=== PATIENT | female | born 1930 | race African-American/Black ===

== ENCOUNTER 2016-11-28 19:22 | Inpatient (IN) | payer MEDICARE, OTHER ==
[2016-11-28] MEDS ORDERED: PANTOPRAZOLE 40 MG/10 ML VIAL IVP STA (21:44)
[2016-11-28] MEDS ORDERED: SODIUM CHLORIDE 0.9% 1,000 ML IV STA ×2 (21:44)
[2016-11-28] MEDS ORDERED: ONDANSETRON 4 MG/2 ML VIAL IVP STA (21:44)
[2016-11-28 22:13] LABS: Basophils % (A) 0 %; CH 28.6; CHCM 31.7; Eosinophils # (A) 0.1 k/uL (0-0.7); Eosinophils % (A) 1 %; HCT 38.3 % (34.0-46.0); HDW 2.48; Luc # (Auto) 0.06; Luc % (Auto) 1; Lymphocytes # (A) 1.4 k/uL (1.0-4.8); Lymphocytes % (A) 14 %; MCH 28.3 pg (25.0-35.0); MCHC 31.2 g/dL (31.0-37.0); MCV 90.7 fL (80.0-100.0); Mean Platelet Volume 8.1; Monocytes # (A) 0.2 k/uL (0-1.0); Monocytes % (A) 2 %; Neutrophils # (A) 8.5 k/uL (1.3-7.7); Neutrophils % (A) 84 %; RBC 4.23 m/uL (3.80-5.40); RDW 14.1 % (11.5-15.5); WBC 10.1 k/uL (3.8-10.6); WBC (Perox) 10.44
[2016-11-28 22:22] LABS: INR 1.1 (<1.1); Partial Thromboplastin Time 23.2 sec (22.0-30.0); Prothrombin Time 11.2 sec (9.0-12.0)
[2016-11-28 22:25] LABS: Calcium 10.2 mg/dL (8.4-10.2); Magnesium 1.6 mg/dL (1.6-2.3); Phosphorous 3.8 mg/dL (2.5-4.5); Potassium 3.9 mmol/L (3.5-5.1); Total Protein 7.8 g/dL (6.3-8.2)
--- NOTE | 2016-11-28 22:29 | ED ---
General Adult HPI - General Chief complaint: Nausea/Vomiting/Diarrhea Stated complaint: Dizziness Time Seen by Provider: 11/28/16 21:13 Source: patient, family, RN notes reviewed, old records reviewed Mode of arrival: wheelchair - History of Present Illness Initial comments: This is an 86-year-old female here for evaluation. Patient presents here today for evaluation of nausea and vomiting, headache and dizziness. Patient feels like the room spinning around, occasionally with change of position. She is weak with difficulty with ambulation, no specific abdominal pain. No recent fevers of sick contacts or travel history, no recent change in medications. - Related Data Home Medications Medication Instructions Recorded Confirmed Aspirin EC [Ecotrin Low Dose] 81 mg PO DAILY 11/28/16 11/28/16 Donepezil [Aricept] 10 mg PO HS 11/28/16 11/28/16 Fluticasone Nasal [place] [Flonase 2 spray EA NOSTRIL DAILY 11/28/16 11/28/16 Nasal [place]] Isosorbide Mononitrate ER [Imdur] 60 mg PO DAILY 11/28/16 11/28/16 Lansoprazole [Prevacid] 30 mg PO DAILY 11/28/16 11/28/16 Memantine HCl [Namenda Xr] 28 mg PO DAILY 11/28/16 11/28/16 Sertraline HCl [Zoloft] 50 mg PO DAILY 11/28/16 11/28/16 Solifenacin Succinate [Vesicare] 5 mg PO DAILY 11/28/16 11/28/16 Valsartan [Diovan] 320 mg PO DAILY 11/28/16 11/28/16 Allergies Allergy/AdvReac Type Severity Reaction Status Date / Time Iodinated Contrast Media - Allergy Unknown Verified 11/28/16 21:57 Oral and Review of Systems ROS Statement: Those systems with pertinent positive or pertinent negative responses have been documented in the HPI. ROS Other: All systems not noted in ROS Statement are negative. Past Medical History Past Medical History: Hypertension Past Surgical History: No Surgical Hx Reported Past Psychological History: No Psychological Hx Reported Smoking Status: Never smoker Past Alcohol Use History: None Reported Past Drug Use History: None Reported General Exam General appearance: alert, in no apparent distress Head exam: Present: atraumatic, normocephalic, normal inspection Eye exam: Present: normal appearance, PERRL, EOMI. Absent: scleral icterus, conjunctival injection, periorbital swelling ENT exam: Present: normal exam, mucous membranes moist Neck exam: Present: normal inspection. Absent: tenderness, meningismus, lymphadenopathy Respiratory exam: Present: normal lung sounds bilaterally. Absent: respiratory distress, wheezes, rales, rhonchi, stridor Cardiovascular Exam: Present: regular rate, normal rhythm, normal heart sounds. Absent: systolic murmur, diastolic murmur, rubs, gallop, clicks GI/Abdominal exam: Present: soft, normal bowel sounds. Absent: distended, tenderness, guarding, rebound, rigid Extremities exam: Present: normal inspection, full ROM, normal capillary refill. Absent: tenderness, pedal edema, joint swelling, calf tenderness Back exam: Present: normal inspection Neurological exam: Present: alert, oriented X3, CN II-XII intact Psychiatric exam: Present: normal affect, normal mood Skin exam: Present: warm, dry, intact, normal color. Absent: rash Course Vital Signs 11/28/16 19:46 Temperature 96.9 F L Pulse Rate 77 Respiratory 18 Rate Blood Pressure 115/57 O2 Sat by Pulse 98 Oximetry - Reevaluation(s) Reevaluation #1: 11/29/16 00:04 Patient remains feeling weak and dizzy EKG Findings - EKG Comments: EKG Findings:: EKG shows A. fib rate of 81, QRS 66, QTc 506 Medical Decision Making - Medical Decision Making 78 female here for evaluation of weakness dizziness, severe dehydration positive urinary tract infection patient will be admitted for resuscitation, IV antibiotics and further evaluation - Lab Data Result diagrams: 11/28/16 21:30 11/28/16 21:30 Lab Results 11/28/16 11/28/16 11/28/16 Range/Units 21:30 21:30 21:30 WBC 10.1 (3.8-10.6) k/uL RBC 4.23 (3.80-5.40) m/uL Hgb 12.0 (11.4-16.0) gm/dL Hct 38.3 (34.0-46.0) % MCV 90.7 (80.0-100.0) fL MCH 28.3 (25.0-35.0) pg MCHC 31.2 (31.0-37.0) g/dL RDW 14.1 (11.5-15.5) % Plt Count 198 (150-450) k/uL Neutrophils % 84 % Lymphocytes % 14 % Monocytes % 2 % Eosinophils % 1 % Basophils % 0 % Neutrophils # 8.5 H (1.3-7.7) k/uL Lymphocytes # 1.4 (1.0-4.8) k/uL Monocytes # 0.2 (0-1.0) k/uL Eosinophils # 0.1 (0-0.7) k/uL Basophils # 0.0 (0-0.2) k/uL PT (9.0-12.0) sec INR (<1.1) APTT (22.0-30.0) sec Sodium 141 (137-145) mmol/L Potassium 3.9 (3.5-5.1) mmol/L Chloride 106 (98-107) mmol/L Carbon Dioxide 23 (22-30) mmol/L Anion Gap 12 mmol/L BUN 17 (7-17) mg/dL Creatinine 1.15 H (0.52-1.04) mg/dL Est GFR (MDRD) Af Amer 54 (>60 ml/min/1.73 sqM) Est GFR (MDRD) Non-Af 45 (>60 ml/min/1.73 sqM) Glucose 149 H (74-99) mg/dL Plasma Lactic Acid Milo (0.7-2.0) mmol/L Calcium 10.2 (8.4-10.2) mg/dL Phosphorus 3.8 (2.5-4.5) mg/dL Magnesium 1.6 (1.6-2.3) mg/dL Total Bilirubin 1.0 (0.2-1.3) mg/dL AST 23 (14-36) U/L ALT 21 (9-52) U/L Alkaline Phosphatase 79 (38-126) U/L Total Creatine Kinase 90 (30-135) U/L CK-MB (CK-2) 0.5 (0.0-2.4) ng/mL CK-MB (CK-2) Rel Index 0.6 Troponin I <0.012 (0.000-0.034) ng/mL Total Protein 7.8 (6.3-8.2) g/dL Albumin 4.0 (3.5-5.0) g/dL Urine Color Urine Appearance (Clear) Urine pH (5.0-8.0) Ur Specific [place] (1.001-1.035) Urine Protein (Negative) Urine Glucose (UA) (Negative) Urine Ketones (Negative) Urine Blood (Negative) Urine Nitrate (Negative) Urine Bilirubin (Negative) Urine Urobilinogen (<2.0) mg/dL Ur Leukocyte Esterase (Negative) Urine RBC (0-5) /hpf Urine WBC (0-5) /hpf Urine WBC Clumps (None) /hpf Ur Squamous Epith Cells (0-4) /hpf Amorphous Sediment (None) /hpf Urine Bacteria (None) /hpf Urine Mucus (None) /hpf 11/28/16 11/28/16 11/28/16 Range/Units 21:30 21:30 23:15 WBC (3.8-10.6) k/uL RBC (3.80-5.40) m/uL Hgb (11.4-16.0) gm/dL Hct (34.0-46.0) % MCV (80.0-100.0) fL MCH (25.0-35.0) pg MCHC (31.0-37.0) g/dL RDW (11.5-15.5) % Plt Count (150-450) k/uL Neutrophils % % Lymphocytes % % Monocytes % % Eosinophils % % Basophils % % Neutrophils # (1.3-7.7) k/uL Lymphocytes # (1.0-4.8) k/uL Monocytes # (0-1.0) k/uL Eosinophils # (0-0.7) k/uL Basophils # (0-0.2) k/uL PT 11.2 (9.0-12.0) sec INR 1.1 (<1.1) APTT 23.2 (22.0-30.0) sec Sodium (137-145) mmol/L Potassium (3.5-5.1) mmol/L Chloride (98-107) mmol/L Carbon Dioxide (22-30) mmol/L Anion Gap mmol/L BUN (7-17) mg/dL Creatinine (0.52-1.04) mg/dL Est GFR (MDRD) Af Amer (>60 ml/min/1.73 sqM) Est GFR (MDRD) Non-Af (>60 ml/min/1.73 sqM) Glucose (74-99) mg/dL Plasma Lactic Acid Mil[place] 3.0 H* (0.7-2.0) mmol/L Calcium (8.4-10.2) mg/dL Phosphorus (2.5-4.5) mg/dL Magnesium (1.6-2.3) mg/dL Total Bilirubin (0.2-1.3) mg/dL AST (14-36) U/L ALT (9-52) U/L Alkaline Phosphatase (38-126) U/L Total Creatine Kinase (30-135) U/L CK-MB (CK-2) (0.0-2.4) ng/mL CK-MB (CK-2) Rel Index Troponin I (0.000-0.034) ng/mL Total Protein (6.3-8.2) g/dL Albumin (3.5-5.0) g/dL Urine Color Yellow Urine Appearance Turbid H (Clear) Urine pH 5.0 (5.0-8.0) Ur Specific [place] 1.016 (1.001-1.035) Urine Protein 1+ H (Negative) Urine Glucose (UA) Negative (Negative) Urine Ketones 1+ H (Negative) Urine Blood Trace H (Negative) Urine Nitrate Positive H (Negative) Urine Bilirubin Negative (Negative) Urine Urobilinogen 2.0 (<2.0) mg/dL Ur Leukocyte Esterase Large H (Negative) Urine RBC 4 (0-5) /hpf Urine WBC 154 H (0-5) /hpf Urine WBC Clumps Few H (None) /hpf Ur Squamous Epith Cells 3 (0-4) /hpf Amorphous Sediment Rare H (None) /hpf Urine Bacteria Many H (None) /hpf Urine Mucus Few H (None) /hpf - Radiology Data Radiology results: report reviewed (CT pelvis negative for acute disease), image reviewed Disposition Clinical Impression: Dehydration, UTI (urinary tract infection) Disposition: ADMITTED IP TO THIS [facility] Condition: Good Referrals: Stefano Sanabria DO [Primary Care Provider] - 1-2 days
[2016-11-28 22:33] LABS: Creatine Kinase 90 U/L (30-135)
[2016-11-28] MEDS ORDERED: SODIUM CHLORIDE 0.9% 2,000 ML IV STA (22:33)
[2016-11-28 22:48] LABS: Creatine Kinase MB 0.5 ng/mL (0.0-2.4); Troponin I <0.012 ng/mL (0.000-0.034)
--- NOTE | 2016-11-28 22:50 | CT ---
EXAMINATION TYPE: CT brain wo con DATE OF EXAM: 11/28/2016 10:43 PM COMPARISON: NONE HISTORY: weakness CT DLP: 999.8 mGycm Automated exposure control for dose reduction was used. FINDINGS: There is cerebral cortical atrophy. There is no mass effect nor midline shift. There is no sign of in tracranial hemorrhage. The calvarium is intact. IMPRESSION: Cerebral atrophy. No acute intracranial abnormality.
[2016-11-28 23:59] LABS: Amorphous Sediment,Urine Rare /hpf; Appearance,Urine Turbid (Clear); Bacteria,Urine Many /hpf; Bilirubin,Urine Negative (Negative); Glucose,Urine (UA) Negative (Negative); Ketones,Urine 1+ (Negative); Leukocyte Esterase,Urine Large (Negative); Mucus,Urine Few /hpf; Nitrite,Urine Positive (Negative); Particle Count 69100; Protein,Urine 1+ (Negative); RBC,Urine 4 /hpf (0-5); Specific Gravity,Urine 1.016 (1.001-1.035); Squamous Epithelial Cell,Urine 3 /hpf (0-4); UA Billing (MACRO vs. MICRO) MICRO; WBC,Urine 154 /hpf (0-5)
[2016-11-29 01:59] VITALS: BMI 28.3
[2016-11-29] MEDS: ENOXAPARIN 40 MG/0.4 ML SYRINGE SQ SCH (09:34)
--- NOTE | 2016-11-29 19:14 | P.HPIM ---
History of Present Illness H&P Date: 11/29/16 78-year-old female with history of dementia comes in to the hospital with complains of urinary urgency and burning for the last few days. Most of the history is obtained from the chart. She apparently has been having some urinary symptoms, denies having any fevers, chills, nausea or diarrhea. Patient however apparently has not been eating well in the recent times. Patient probably had also had slightly low blood pressures and dizziness. Patient was noted to have a lactic acid elevation initially, a UA consistent with ATN just was a prerenal etiology from the above-stated infection. Currently patient states to be feeling okay, denies having any nausea. States that she is able to tolerate liquids and food. Patient lives with her daughter,. Patient was given fluid boluses in the ER. Review of Systems All systems: negative (Noted in HPI) Past Medical History Past Medical History: Hypertension History of Any Multi-Drug Resistant Organisms: None Reported Past Surgical History: No Surgical Hx Reported Additional Past Surgical History / Comment(s): daughter thinks she has bowel surgery Past Anesthesia/Blood Transfusion Reactions: No Reported Reaction Past Psychological History: No Psychological Hx Reported Smoking Status: Never smoker Past Alcohol Use History: None Reported Past Drug Use History: None Reported - Past Family History Mother History Unknown: Yes Father History Unknown: Yes Medications and Allergies Home Medications Medication Instructions Recorded Confirmed Type Aspirin EC [Ecotrin Low Dose] 81 mg PO DAILY 11/28/16 11/28/16 History Donepezil [Aricept] 10 mg PO HS 11/28/16 11/28/16 History Fluticasone Nasal [place] [Flonase 2 spray EA NOSTRIL DAILY 11/28/16 11/28/16 History Nasal [place]] Isosorbide Mononitrate ER [Imdur] 60 mg PO DAILY 11/28/16 11/28/16 History Lansoprazole [Prevacid] 30 mg PO DAILY 11/28/16 11/28/16 History Memantine HCl [Namenda Xr] 28 mg PO DAILY 11/28/16 11/28/16 History Sertraline HCl [Zoloft] 50 mg PO DAILY 11/28/16 11/28/16 History Solifenacin Succinate [Vesicare] 5 mg PO DAILY 11/28/16 11/28/16 History Valsartan [Diovan] 320 mg PO DAILY 11/28/16 11/28/16 History Allergies Allergy/AdvReac Type Severity Reaction Status Date / Time Iodinated Contrast Media - Allergy Unknown Verified 11/28/16 21:57 Oral and Physical Exam Vitals: Vital Signs Temp Pulse Pulse Resp BP BP Pulse Ox 11/29/16 15:00 97.0 F L 77 18 143/68 93 L 11/29/16 07:00 98.1 F 70 17 118/71 94 L 11/29/16 01:45 97.0 F L 89 16 150/73 11/29/16 01:10 73 12 162/97 95 Intake and Output 11/29/16 11/29/16 11/29/16 06:59 14:59 22:59 Intake Total 300 840 360 Balance 300 840 360 Intake: IV 300 Sodium Chloride 0.9% 1, 300 000 ml @ 100 mls/hr IV . Q10H STA Rx#:[id number] Oral 840 360 Other: Voiding Method Toilet Bedpan # Voids 3 3 Weight 77.111 kg Physical exam Gen. appearance oriented to time and place in no distress Neck is supple no JVD Lungs good air entry clear to auscultation no rhonchi or wheezing Heart S1-S2 heard regular rate and rhythm no murmurs appreciated Abdomen is soft nontender no organomegaly bowel sounds are intact no suprapubic tenderness noted Neurologically cranial nerves II-12 grossly intact no focal motor or sensory deficits noted Skin no abnormalities appreciated Results CBC & Chem 7: 11/28/16 21:30 11/28/16 21:30 Thrombosis Risk Factor Assmnt - Choose All That Apply Each Risk Factor Represents 3 Points: Age 75 years or older Thrombosis Risk Factor Assessment Total Risk Factor Score: 3 Thrombosis Risk Factor Assessment Level: Moderate Risk Assessment and Plan Plan: #1 acute kidney injury likely secondary to dehydration #2 urinary tract infection #3 sepsis secondary to above #4 history of dementia #5 history of hypertension #6 GERD #7 dyslipidemia Plan Continue ongoing care. Patient be continued on antibiotics. Continue blood pressure maintain map greater than 65. With IV hydration and monitor blood pressure patient will likely be ambulated tomorrow if patient is orthostatic negative and is able to ambulate and we'll likely discharge the patient next 24-48 hours.
[2016-11-29] MEDS ORDERED: DONEPEZIL 10 MG TAB PO SCH (21:00)
[2016-11-30] MEDS ORDERED: HALOPERIDOL LACTATE 5 MG/ML 1 ML VIAL IM ONE (05:32)
[2016-11-30] MEDS ORDERED: PANTOPRAZOLE 40 MG TABLET PO SCH (07:30)
[2016-11-30 08:12] LABS: Basophils % (A) 0 %; CH 28.4; Eosinophils # (A) 0.1 k/uL (0-0.7); Eosinophils % (A) 2 %; HCT 38.5 % (34.0-46.0); HDW 2.53; HGB 11.8 gm/dL (11.4-16.0); Hypochromasia Slight; Luc # (Auto) 0.07; Luc % (Auto) 1; Lymphocytes # (A) 1.4 k/uL (1.0-4.8); Lymphocytes % (A) 23 %; MCH 28.4 pg (25.0-35.0); MCHC 30.8 g/dL (31.0-37.0); MCV 92.4 fL (80.0-100.0); Mean Platelet Volume 8.2; Monocytes # (A) 0.3 k/uL (0-1.0); Monocytes % (A) 5 %; Neutrophils # (A) 4.2 k/uL (1.3-7.7); Neutrophils % (A) 69 %; RBC 4.17 m/uL (3.80-5.40); RDW 14.1 % (11.5-15.5); WBC 6.2 k/uL (3.8-10.6); WBC (Perox) 6.56
[2016-11-30 08:13] VITALS: BP 150/73; PULSE 67; RESP 16; TEMP 97.9
[2016-11-30 08:34] LABS: ALT 30 U/L (9-52); AST 23 U/L (14-36); Alkaline Phosphatase 69 U/L (38-126); Anion Gap 13 mmol/L; Blood Urea Nitrogen 7 mg/dL (7-17); Calcium 9.5 mg/dL (8.4-10.2); Carbon Dioxide 23 mmol/L (22-30); Chloride 109 mmol/L (98-107); Glucose 95 mg/dL (74-99); Magnesium 1.3 mg/dL (1.6-2.3); Non-African American GFR(MDRD) >60 (>60 ml/min/1.73 sqM); Potassium 3.8 mmol/L (3.5-5.1); Sodium 145 mmol/L (137-145); Total Bilirubin 0.6 mg/dL (0.2-1.3); Total Protein 7.4 g/dL (6.3-8.2)
[2016-11-30] MEDS: ENOXAPARIN 40 MG/0.4 ML SYRINGE SQ SCH ×2 (08:46→09:00)
[2016-11-30] MEDS ORDERED: OXYBUTYNIN XL 5 MG TAB.ER.24 PO SCH (09:00)
[2016-11-30] MEDS ORDERED: SERTRALINE 50 MG TAB PO SCH (09:00)
[2016-11-30] MEDS ORDERED: FLUTICASONE 50MCG/SPRAY NASAL 16GM EA NOSTRIL SCH (09:00)
[2016-11-30] MEDS ORDERED: MEMANTINE 10 MG TAB PO SCH (09:00)
--- NOTE | 2016-11-30 20:39 | P.DS ---
Providers Date of admission: 11/29/16 00:03 Attending physician: Bill Carey Primary care physician: Stefano Sutherland [facility] Course: 78-year-old female with history of dementia comes in to the hospital with complains of urinary urgency and burning for the last few days. Most of the history is obtained from the chart. She apparently has been having some urinary symptoms, denies having any fevers, chills, nausea or diarrhea. Patient however apparently has not been eating well in the recent times. Patient probably had also had slightly low blood pressures and dizziness. Patient was noted to have a lactic acid elevation initially, a UA consistent with ATN just was a prerenal etiology from the above-stated infection. Currently patient states to be feeling okay, denies having any nausea. States that she is able to tolerate liquids and food. Patient lives with her daughter,. Patient was given fluid boluses in the ER. On the day of discharge Pt was awake, was answering questions appropriately Pt did have episodes of confusion, appeared to be delirium. Physical exam Gen. 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 #3 sepsis secondary to above #4 history of dementia #5 history of hypertension #6 GERD #7 dyslipidemia 8 Delirium Discussion Dc home on levaquin SPoke to the lab. Pt's family is recommended to follow up with Dr Sutherland, in order to ensure susceptibilities. Levauqin for 10 days Clinically improved Was able to ambulate. Delirium is likely secondary to unfamiliar place. Discussed with family that is stable to be discharged. Daughter was concerned about the incident this am, however, pt didnot require any medications. Discussed it is delirium, due to lack of sleep. pt clinically does not appear to be dehydrated. D/c home with home care. pai gow dealer to eval kathy am. Patient Condition at Discharge: Good Plan - Discharge Summary New Discharge Prescriptions: Levofloxacin [Levaquin] 500 mg PO DAILY #7 tab Discharge Medication List Aspirin EC [Ecotrin Low Dose] 81 mg PO DAILY 11/28/16 [History] Donepezil [Aricept] 10 mg PO HS 11/28/16 [History] Fluticasone Nasal [place] [Flonase Nasal [place]] 2 spray EA NOSTRIL DAILY 11/28/16 [History] Isosorbide Mononitrate ER [Imdur] 60 mg PO DAILY 11/28/16 [History] Lansoprazole [Prevacid] 30 mg PO DAILY 11/28/16 [History] Memantine HCl [Namenda Xr] 28 mg PO DAILY 11/28/16 [History] Sertraline HCl [Zoloft] 50 mg PO DAILY 11/28/16 [History] Solifenacin Succinate [Vesicare] 5 mg PO DAILY 11/28/16 [History] Valsartan [Diovan] 320 mg PO DAILY 11/28/16 [History] Levofloxacin [Levaquin] 500 mg PO DAILY #7 tab 11/30/16 [Rx] Follow up Appointment(s)/Referral(s): [facility], [NON-STAFF] - Stefano Sutherland DO [Primary Care Provider] - 12/04/16 10:45 am Activity/Diet/Wound Care/Special Instructions: Pls see Dr sutherland about final cultures. Improved on rocephin, received 3 doses. D/c home on levaquin Discharge Disposition: HOME WITH HOME HEALTH SERVICES
== END 2016-11-30 16:54 | disposition home health service (06) | DRG 871 ==
LOC: EC 19:22 → EEVIPCON 19:22 → 3SUR 11-29 00:03
PROVIDERS: ADMIT Internal Medicine; ATTEND Internal Medicine
DX: A41.9 Sepsis, unspecified organism (principal); N17.0 Acute kidney failure with tubular necrosis; N39.0 Urinary tract infection, site not specified; E86.0 Dehydration; F03.90 Unspecified dementia, unspecified severity, without behavioral disturbance, psychotic disturbance, mood disturbance, and anxiety; E78.5 Hyperlipidemia, unspecified; I10 Essential (primary) hypertension; K21.9 Gastro-esophageal reflux disease without esophagitis; Z79.82 Long term (current) use of aspirin; Z79.899 Other long term (current) drug therapy; Z91.041 Radiographic dye allergy status
CPT/HCPCS: 36415; 70450; 80053; 81001; 82550; 82553; 83605; 83735; 84100; 84484; 85025; 85610; 85730; 87077; 87086; 87186; 93005; 94760; 96361; 96365; 96375; 99285